=== PATIENT | female | born 1955 | race African-American/Black ===

== ENCOUNTER → 2017-03-03 | Day surgery (SDC) | payer OTHER, MEDICAID ==
[~2017-03-03] MED LIST: XYLOCAINE 1 % (PLAIN) IJ ONE
--- NOTE | 2017-03-03 09:25 | DR.UPDATE ---
H&P Update History and Physical Update: History and Physical reviewed and patient examined. Changes noted: NO Yes with the following:Agree with H&P from Dr uQezada. will perform right hip joint aspiration
[2017-03-03 10:16] VITALS: BP 135/86
== END | disposition home or self-care (01) ==
LOC: SURG1 08:42
PROVIDERS: ATTEND Specialist
PROC: 0S993ZZ Drainage of Right Hip Joint, Percutaneous Approach (ICD-10-PCS; principal; 2017-03-03 09:30)
DX: M25.551 Pain in right hip (principal)
CPT/HCPCS: 20610; 76000; 77002; J2001

== ENCOUNTER 2017-04-14 12:34 | Day surgery (SDC) | payer OTHER, MEDICAID ==
[2017-04-14 12:52] VITALS: BP 137/79
--- NOTE | 2017-04-14 13:24 | DR.UPDATE ---
H&P Update History and Physical Update: History and Physical reviewed and patient examined. Changes noted: NO Yes with the following:Agree with Dr Quezada's H&P and assessment. However, upon my interview with the patient, she refused the epidural steroid injection. patient seems to have misunderstood Dr Serrano's plan of care. she was discharged home and instructed to follow up with Dr Quezada
== END 2017-04-14 13:05 | disposition home or self-care (01) ==
LOC: SURG1 12:34
PROVIDERS: ATTEND Specialist
DX: M54.5 Low back pain (principal); M51.36 Other intervertebral disc degeneration, lumbar region; Z53.8 Procedure and treatment not carried out for other reasons